=== PATIENT | female | born 1985 | race Caucasian/White ===

== ENCOUNTER → 2018-03-08 | Outpatient (CLI) | payer OTHER | LOC: FIMAGING 07:31 | PROVIDERS: ATTEND Advanced Practice Midwife | DX: O09.522 Supervision of elderly multigravida, second trimester (principal); O09.812 Supervision of pregnancy resulting from assisted reproductive technology, second trimester; Z3A.20 20 weeks gestation of pregnancy ==

== ENCOUNTER 2018-06-17 19:52 | Inpatient (IN) | payer OTHER ==
[2018-06-17] MEDS ORDERED: IBUPROFEN 600 MG TAB PO PRN (20:57)
[2018-06-17] MEDS ORDERED: OXYTOCIN/RINGERS LACTATE 1,000 ML IV PRN (20:57)
[2018-06-17] MEDS ORDERED: OLIVE OIL 118 ML BTL MISC PRN (20:57)
[2018-06-17] MEDS ORDERED: LIDOCAINE 1% 300 MG/30 ML SDV SC PRN (20:57)
[2018-06-17] MEDS ORDERED: MISOPROSTOL 200 MCG TAB PO PRN (20:57)
[2018-06-17] MEDS ORDERED: EPSOM SALT 454 GM TP PRN (20:57)
[2018-06-17] MEDS ORDERED: AMMONIA AROMATIC 1 EACH AMP IH PRN (20:57)
[2018-06-17] MEDS ORDERED: TERBUTALINE SULFATE 1 MG/ML VIAL IV PRN (20:57)
[2018-06-17] MEDS ORDERED: BETAMETHASONE IM SYRINGE IM ONE (20:59)
[2018-06-17] MEDS ORDERED: PENICILLIN G POTASSIUM 5,000,000 UNIT in D5W 150 ML IV ONE (21:30)
[2018-06-17 22:15] LABS: PLATELET COUNT 211 10^3/uL (150-400)
--- NOTE | 2018-06-17 23:25 | PDGENHP ---
History and Physical History and Physical: Care: [facility] HPI: Pt reports she had leaking fluid this afternoon when getting up from a sitting position at 1630 but assumed it was urine. She states she went home early from work as she was not feeling well. Denies contractions. After having it happen a second time with a large gush she paged the licensed vocational nurse advertising sales representative. States she had a couple of more incidence of leaking before coming in. Once on the unit , the RN visualized clear fluid at the introitus and again on a pad. Nitrazine equivocal, amnisure +. Patient is a 33 yo G 3 P 1 @ 34.5 weeks that presents to L&D with complaints of leaking fluid. EDC: 07/24/2018 which is based on LMP: 10/15/2017 which is known and consistent with Ultrasound at 6 weeks. Her is complicated by: AMA, Surrogate by IVF, mild anemia Review of Systems: Constitutional: Began feeling flush and warm after being on the unit for a couple of hours HEENT: denies any visual changes, difficulty swallowing, hearing loss Cardiovascular: Denies any chest pain, palpitations, leg swelling Respiratory: denies any cough, wheezing, or shortness of breathe GI: Denies any nausea, vomiting, diarrhea, constipation : denies any dysuria, urgency, frequency, vaginal bleeding Musculoskeletal: denies any muscle or bone pain Skin: denies any rashes Neuro: denies any headache, seizures, lightheadedness, dizziness, or loss of consciousness Psychiatric: denies any depression, anxiety, or SI/HI thoughts HISTORY: Previous OB history: in 2014 7-10 female at 41.1 weeks gestation. Had epidural and pit augmentation; 2011 TAB without complication Past medical history: ho/depression many years ago Past surgical history: wisdom teeth Social: Denies any alcohol, tobacco, or drug use. Family history: type 1 diabetes, hypothyroid, father was alcoholic, grandmother - lupus, mother- melanoma, mother and maternal grandmother hypertension Medications: PNV Allergies (list reaction): NKDA LABS: Rh: A+ ABS: Neg Rubella: Immune HbsAg: NR HIV: NR VDRL: NR 1hr: 123 GC: Neg Chlamydia: Neg Pap: Normal GBS: Pending BMI: (prepreg) 28.2 PHYSICAL EXAM: Constitutional: WN, A&Ox3 HEENT: normocephalic atraumatic, supple Skin: Warm, dry, intact Heart: RRR, no murmur Chest: CTA-B Abdomen: Soft, nontender, gravid SVE: deferred due to rupture; confirmed vertex presentation via ultrasound Extremities: no edema, negative homans sign Neuro: grossly normal Psych: normal affect Vital Signs: On admission was afebrile. Has now had temp 100.7; repeat 100.4 assessment: FHT baseline 120-130, mod viri, +accels, 1 variable decels, Contractions: irregular Assessment: 1) 33 yo G 3 P 1 with IUP@ 34.5 2) PPROM; no labor 3) Febrile; Probable Chorioamnionitis 3) GBS unknown 4) Cat 1 FHR tracing 5) Surrogate Plan: 1) Admit to L&D 2) Consulted with Dr Freeman and Dr Bowens, [facility] Fellow to review plan of care including betamethazone, initiating GBS protocol and discussed timing of induction of labor. Per Dr Bowens ok to wait up to 12 hours after rupture and may start cytotec or pitocin. 3) Betamethazone 12.5 mg x 1; repeat in 12 hours 4) Initiated GBS protocol, received initial dose 5 million units PCN IV. 5) Since developing fever, antibiotics changed to ampicillin 2 grams q 6 hours and gentamicin 5 mg/kg q 24 hours to be dosed by the pharmacy 6) Tylenol 650 mg q 4 hours for fever. 7) Continuous monitoring 8) Pt would like to wait to start induction of labor until parents of the baby arrive. They live approx 4 hours away. Given frequency of contractions will start pitocin induction once she consents. 9) NICU advised and has been in to visit with the patient.
[2018-06-17] MEDS ORDERED: D5W IV SCH (23:30)
[2018-06-17] MEDS ORDERED: GENTAMICIN SULFATE IV SCH (23:30)
[2018-06-17] MEDS ORDERED: ACETAMINOPHEN 325 MG TAB PO PRN (23:31)
[2018-06-17] MEDS: LR 1,000 ML IV PRN (23:36)
[2018-06-17] MEDS ORDERED: OLIVE OIL 118 ML BTL ONE (23:45)
[2018-06-17] MEDS ORDERED: LIDOCAINE 1% 300 MG/30 ML SDV ONE (23:45)
[2018-06-17] MEDS ORDERED: OXYTOCIN 10 UNIT/ML VIAL ONE (23:45)
[2018-06-17] MEDS ORDERED: TERBUTALINE SULFATE 1 MG/ML VIAL ONE (23:45)
[2018-06-17] MEDS ORDERED: AMMONIA AROMATIC 1 EACH AMP IH ONE (23:45)
[2018-06-17] MEDS ORDERED: MISOPROSTOL 200 MCG TAB ONE (23:46)
[2018-06-18] MEDS: AMPICILLIN SODIUM 2 GM in NS 100 ML IV SCH ×4 (00:04→18:43)
[2018-06-18] MEDS ORDERED: PENICILLIN G POTASSIUM 2,500,000 UNIT in D5W 150 ML IV SCH (01:30)
[2018-06-18] MEDS: GENTAMICIN PHARMACY TO DOSE MISC SCH (01:42)
[2018-06-18] MEDS ORDERED: LR 500 ML IV PRN (02:59)
[2018-06-18] MEDS ORDERED: OXYTOCIN/RINGERS LACTATE 500 ML IV SCH (03:00)
[2018-06-18] MEDS: LR 1,000 ML IV PRN (03:44)
--- NOTE | 2018-06-18 04:02 | OBPROG ---
Labor Progress Note Assessment/Plan: Assessment: Category 1 strip Plan: 06/18/18 04:06 Reviewed with pt and intended parents plan for induction and anticipated . The intended mother will be handed the baby at delivery with intent to wait for delayed cord clamping prior to handing off to the NICU. Questions answered. Orders for low dose pitocin entered. Subjective/Intrapartum Course: 06/18/18 03:58 Pt states she is feeling better, no longer flushed and hot. Feeling some uc's. The intended parents have arrived and will be present for the as well as assuming care for the baby once born. NICU has met with the pt and will be meeting with the parents prior to the . Objective: 06/17/18 21:50 Patient ABO/Rh A POSITIVE 06/17/18 21:50 Afebrile. VSS. FHT baseline 120; mod viri; + accels; no decels. UC's q 4 to 5 when toco picking them up. Having difficulty monitoring contractions when in different positions. - SVE Membranes: SROM Amniotic Fluid Color: Clear Oxytocin Orders Assessment - Pre-Induction/Augmentation Assessment Gestational Age: 34 week(s) and 5 day(s) ICD10 Worksheet Patient Problems: Problems Problem Status Onset Chorioamnionitis Acute premature rupture of membranes (PPROM) with unknown onset of labor Acute (spontaneous vaginal delivery) Acute - ICD10 Problem Qualifiers (1) premature rupture of membranes (PPROM) with unknown onset of labor (2) Chorioamnionitis
[2018-06-18] MEDS ORDERED: BETAMETHASONE IM SYRINGE IM ONE ×3 (09:00→21:30)
--- NOTE | 2018-06-18 11:38 | OBPROG ---
Labor Progress Note Assessment/Plan: Assessment: 33 y/o @ 34.6 wks ega PPROM 34.5 wks ega Chorioamnionitis - receiving amp/gent IV VSS - last fever 2300 IOL - pitocin at 20 mu - has been infusing for 7 hours with little response Category 1 EFM Cntx mild q 3-4 min SVE 1-2/60/-2 soft Plan: Will d/c pit for now and give oral cytotec in 2 hours - reevaluate 4 hours after first dose and repeat if needed Restart pitocin when appropriate Continue IV amp/gent No further vaginal exams until in active labor - then limited. Reviewed POC with patient Anticipate 06/18/18 11:22 Subjective/Intrapartum Course: 06/18/18 03:58 Pt states she is feeling better, no longer flushed and hot. Feeling some uc's. The intended parents have arrived and will be present for the as well as assuming care for the baby once born. NICU has met with the pt and will be meeting with the parents prior to the . 06/18/18 11:38 Comfortable, has been resting - reports contractions very mild and have not increased in intensity. Objective: 06/17/18 21:50 Patient ABO/Rh A POSITIVE 06/17/18 21:50 - SVE Dilation (cm): 1 Effacement (%): 50 Station: -2 Membranes: SROM Amniotic Fluid Color: Clear - Contraction Pattern Assessment Current Contraction Pattern: Irregular - Physical Exam General Appearance: WD/WN Neck: normal inspection Respiratory: normal breath sounds Cardiac/Chest: regular rate, rhythm Skin: normal color Neuro/Psych: alert, normal mood/affect, oriented x 3 Oxytocin Orders Assessment - Pre-Induction/Augmentation Assessment Gestational Age: 34 week(s) and 5 day(s) ICD10 Worksheet Patient Problems: Problems Problem Status Onset Chorioamnionitis Acute premature rupture of membranes (PPROM) with unknown onset of labor Acute (spontaneous vaginal delivery) Acute
[2018-06-18] MEDS: MISOPROSTOL 50 MCG CAP PO PRN ×2 (13:30→19:42)
--- NOTE | 2018-06-18 20:14 | OBPROG ---
Labor Progress Note Assessment/Plan: Assessment: 33 y/o @ 34.6 wks ega PPROM 34.5 wks ega Chorioamnionitis - receiving amp/gent IV VSS - last fever 2300 s/p 2 doses of cytotec Category 1 EFM Cntx mild q 3-4 min Plan: Will continue to give cytotec q 4 hours throughout night unless norman too frequently Restart pitocin in AM if not laboring Continue IV amp/gent No further vaginal exams until in active labor - then limited. Reviewed POC with patient Anticipate 06/18/18 11:22 06/18/18 20:12 Subjective/Intrapartum Course: 06/18/18 03:58 Pt states she is feeling better, no longer flushed and hot. Feeling some uc's. The intended parents have arrived and will be present for the as well as assuming care for the baby once born. NICU has met with the pt and will be meeting with the parents prior to the . 06/18/18 11:38 Comfortable, has been resting - reports contractions very mild and have not increased in intensity. 06/18/18 20:14 Still fairly comfortable with some "menstrual crampy" feeling. Is going to try to rest. Objective: 06/17/18 21:50 Patient ABO/Rh A POSITIVE 06/17/18 21:50 Group B Strep DNA NEGATIVE (NEGATIVE) 06/17/18 22:13 - SVE Membranes: SROM Amniotic Fluid Color: Clear - Contraction Pattern Assessment Current Contraction Pattern: Irregular Oxytocin Orders Assessment - Pre-Induction/Augmentation Assessment Gestational Age: 34 week(s) and 5 day(s) ICD10 Worksheet Patient Problems: Problems Problem Status Onset Chorioamnionitis Acute premature rupture of membranes (PPROM) with unknown onset of labor Acute (spontaneous vaginal delivery) Acute
[2018-06-18] MEDS ORDERED: hydrOXYzine HCL 50 MG TAB PO PRN (20:22)
[2018-06-18] MEDS ORDERED: GENTAMICIN SULFATE IV SCH (23:30)
[2018-06-18] MEDS ORDERED: D5W IV SCH (23:30)
[2018-06-19] MEDS: AMPICILLIN SODIUM 2 GM in NS 100 ML IV SCH (00:30)
[2018-06-19] MEDS: GENTAMICIN PHARMACY TO DOSE MISC SCH (00:59)
--- NOTE | 2018-06-19 01:57 | OBPROG ---
Labor Progress Note Assessment/Plan: Assessment: 33 y/o @ 34.6 wks ega PPROM 34.5 wks ega Chorioamnionitis - receiving amp/gent IV VSS - last fever 2300 s/p 2 doses of cytotec Category 1 EFM Cntx mild q 3-4 min Plan: Will continue to give cytotec q 4 hours throughout night unless norman too frequently Restart pitocin in AM if not laboring Continue IV amp/gent No further vaginal exams until in active labor - then limited. Reviewed POC with patient Anticipate 06/18/18 11:22 06/18/18 20:12 06/19/18 01:51 Unable to citrus picker contractions adequately with external toco - RN concerned about possible late vs variable decels intermittently with contractions. Starting to feel more uncomfortable and using nitrous as needed. IUPC placed - category 1 EFM noted with no further decelerations. SVE /-2 - latent phase labor. Contractions q 5 - MVUs 108-245 at this time. Will continue to monitor and start pitocin in 30 minutes if continued category 1 EFM. Epidural PRN if patient desires. Subjective/Intrapartum Course: 06/18/18 03:58 Pt states she is feeling better, no longer flushed and hot. Feeling some uc's. The intended parents have arrived and will be present for the as well as assuming care for the baby once born. NICU has met with the pt and will be meeting with the parents prior to the . 06/18/18 11:38 Comfortable, has been resting - reports contractions very mild and have not increased in intensity. 06/18/18 20:14 Still fairly comfortable with some "menstrual crampy" feeling. Is going to try to rest. 06/19/18 01:58 More uncomfortable with contractions. Using nitrous as needed. Objective: 06/17/18 21:50 Patient ABO/Rh A POSITIVE 06/17/18 21:50 Group B Strep DNA NEGATIVE (NEGATIVE) 06/17/18 22:13 - SVE Dilation (cm): 3 Effacement (%): 90 Station: -2 Membranes: SROM Amniotic Fluid Color: Clear - Contraction Pattern Assessment Current Contraction Pattern: Regular - Procedures Non-surgical Procedures: IUPC Oxytocin Orders Assessment - Pre-Induction/Augmentation Assessment Gestational Age: 34 week(s) and 5 day(s) ICD10 Worksheet Patient Problems: Problems Problem Status Onset Chorioamnionitis Acute premature rupture of membranes (PPROM) with unknown onset of labor Acute (spontaneous vaginal delivery) Acute
[2018-06-19] MEDS ORDERED: SIMETHICONE 80 MG TAB CHEW PO PRN (06:01)
[2018-06-19] MEDS ORDERED: DOCUSATE SODIUM 100 MG CAP PO PRN (06:01)
[2018-06-19] MEDS ORDERED: HYDROCORTISONE 0.5% CREAM TP PRN (06:01)
[2018-06-19] MEDS ORDERED: fentaNYL 100 MCG/2 ML INJ IVP ONE (06:01)
--- NOTE | 2018-06-19 06:15 | OBDEL ---
Info Type: Vaginal Presentation at Delivery: Vertex L&D Analgesia/Anesthesia Type: Nitrous GBS+: No Intrapartum Medications: Generic Name Dose Route Start Last Admin Trade Name Aris PRN Reason Stop Dose Admin Acetaminophen 650 mg 06/17/18 23:31 06/17/18 23:48 Tylenol PO 12/14/18 23:30 650 mg Q4HRS PRN Administration Pain, Mild/Fever, Can Take PO Hydroxyzine HCl 50 mg 06/18/18 20:22 06/18/18 21:22 Hydroxyzine Hcl PO 12/15/18 20:21 50 mg Q6HRS PRN Administration sleep Oxytocin/Lactated Ringer's 500 mls @ 0 mls/hr 06/18/18 03:00 06/18/18 03:42 Pitocin 30 Units/Lr (Premix) IV 12/15/18 02:59 500 mls CONT ANDREA Administration Protocol Per Protocol Discontinued Medications Generic Name Dose Route Start Last Admin Trade Name Aris PRN Reason Stop Dose Admin Betamethasone Acet/Betameth SodPhos 12 mg 06/17/18 20:59 06/17/18 21:24 Celestone Im Syringe IM 06/17/18 21:00 12 mg ONCE ONE Administration Betamethasone Acet/Betameth SodPhos 12 mg 06/18/18 09:00 06/18/18 15:10 Celestone Im Syringe IM 06/18/18 09:01 Not Given ONCE ONE Betamethasone Acet/Betameth SodPhos 12 mg 06/18/18 21:30 06/18/18 21:15 Celestone Im Syringe IM 06/18/18 21:31 12 mg ONCE ONE Administration Gentamicin Sulfate 1 each 06/17/18 23:15 06/19/18 00:[address] [facility] 12/14/18 23:14 Not Given Q24H [facility] Protocol Lactated Ringer's 1,000 mls @ 0 mls/hr 06/17/18 20:57 06/18/18 03:44 Lr IV 06/18/18 20:56 1,000 mls PRN PRN Administration SEE PROTOCOL CONDITIONS Protocol Per Protocol Penicillin G Potassium 5,000, 160 mls @ 160 mls/hr 06/17/18 21:30 06/17/18 21 :38 000 unit/ Dextrose IV 06/17/18 22:29 160 mls ONCE ONE Administration Protocol Ampicillin Sodium 2 gm/ Sodium 110 mls @ 220 mls/hr 06/18/18 00:00 06/19/18 00:30 Chloride IV 07/18/18 00:00 110 mls Q6HRS ANDREA Administration Protocol Gentamicin Sulfate 430 mg/ 110.75 mls @ 110.75 mls/hr 06/17/18 23:30 23:35 Dextrose IV 07/17/18 23:29 110.75 mls Q24H ANDREA Administration Gentamicin Sulfate 285 mg/ 107.125 mls @ 107.125 mls/hr 06/18/18 23:30 23:26 Dextrose IV 07/17/18 23:29 107.125 mls Q24H ANDREA Administration Misoprostol 50 mcg 06/18/18 13:30 06/18/18 19:42 Cytotec PO 12/15/18 13:29 50 mcg Q4 PRN Administration cervical ripening - Infant Care Provider Digital Coordinator/FORENSIC PSYCHIATRIST: Laura Lazo - Hospital Course Intrapartum: 06/18/18 03:58 Pt states she is feeling better, no longer flushed and hot. Feeling some uc's. The intended parents have arrived and will be present for the as well as assuming care for the baby once born. NICU has met with the pt and will be meeting with the parents prior to the . 06/18/18 11:38 Comfortable, has been resting - reports contractions very mild and have not increased in intensity. 06/18/18 20:14 Still fairly comfortable with some "menstrual crampy" feeling. Is going to try to rest. 06/19/18 01:58 More uncomfortable with contractions. Using nitrous as needed. Indications for Delivery: PPROM Vaginal Delivery - Delivery Provider Delivery Physician/CNM: Christina Horn - Labor and Delivery Onset of Contractions Date: 06/18/18 Onset of Contractions Time: 22:00 Onset of Contractions Type: Induced Rupture of Membranes Date: 06/17/18 Rupture of Membranes Time: 16:30 Rupture of Membranes Type: Premature Amniotic Fluid Color: Clear Dilation Complete Date: 06/19/18 Dilation Complete Time: 05:21 Placenta Delivery Date: 06/19/18 Placenta Delivery Time: 05:40 Total Hours of Labor: 7 Non-surgical Procedures: IUPC Laceration: 1st Degree Vaginal Sponge Count Correct: Yes Vaginal Needle Count Correct: Yes Vaginal Sweep Performed: No EBL: 300 Delivery Events: None Delivery Comment: Chorioamnionitis - treated with ampicillin/gentamycin - Medications Labor Augmentation/Induction Methods Used: Pitocin, Misoprostol [place] Data NENITA: 07/24/18 Gestational Age: 35 week(s) and 0 day(s) [place] Delivery Date: 06/19/18 Delivery Time: 05:34 Sex of : Female Score (1 Min): 8 Score (5 Min): 9 ICD10 Worksheet Patient Problems: Problems Problem Status Onset Chorioamnionitis Acute premature rupture of membranes (PPROM) with unknown onset of labor Acute (spontaneous vaginal delivery) Acute
[2018-06-19] MEDS: IBUPROFEN 600 MG TAB PO SCH ×2 (06:31→13:12)
--- NOTE | 2018-06-19 10:00 | OBGCSDC ---
General Delivery Information - General Info : 3 Para: 2 Abortions: 1 Type: Vaginal L&D Analgesia/Anesthesia Type: Nitrous Admission Date: 06/17/18 Labs: Patient ABO/Rh A POSITIVE 06/17/18 21:50 Hct 34.5 % (38.0-47.0) L 06/17/18 21:50 Group B Strep DNA NEGATIVE (NEGATIVE) 06/17/18 22:13 - Hospital Course Intrapartum: 06/18/18 03:58 Pt states she is feeling better, no longer flushed and hot. Feeling some uc's. The intended parents have arrived and will be present for the as well as assuming care for the baby once born. NICU has met with the pt and will be meeting with the parents prior to the . 06/18/18 11:38 Comfortable, has been resting - reports contractions very mild and have not increased in intensity. 06/18/18 20:14 Still fairly comfortable with some "menstrual crampy" feeling. Is going to try to rest. 06/19/18 01:58 More uncomfortable with contractions. Using nitrous as needed. : 06/19/18 2000 S) Pt doing well, reports min pain and bleeding. she is ambulating and voiding without difficulty. She is . She desires discharge home today. O) VSS, afebrile constitutional: WNWF, A&Ox3 HEENT: normocephalic, atraumatic, supple Heart: RRR, No murmur Chest: CTA-B Abdomen: Soft, nontender Uterus: Firm at U-2 Lochia: Minimal rubra Perineum: Intact, healing well Extremities: Trace edema, and negative Juliette's sign Neuro: Grossly normal A) 33 year-old S/P PPD#0 anemia P) Discharge home today Continue Pelvic rest x6wks Continue daily iron Discussed danger signs (infection, preeclampsia, depression, heavy bleeding, etc) RTO in 2/4/6 weeks - call if concerns prior to 2 week appt. 06/19/18 10:19 06/21/18 10:10 Vaginal - Delivery Provider Delivery Physician/CNM: Christina Horn - Diagnosis Labor: Induced Rupture of Membranes Type: Premature Amniotic Fluid Color: Clear Laceration: 1st Degree Delivery Events: None - Procedures Non-surgical Procedures: IUPC - Delivery Non-surgical Procedures: IUPC EBL: 300 Moon Data NENITA: 07/24/18 Gestational Age: 35 week(s) and 2 day(s) [place] Delivery Date: 06/19/18 Delivery Time: 05:34 Sex of Infant: Female Weight (gm): 2267.962 g Score (1 Min): 8 Score (5 Min): 9 Discharge Information - Discharge Information Prescriptions: Docusate Sodium [Colace 100 MG (*)] 100 mg PO BID PRN #30 cap PRN Reason: Constipation Ibuprofen [Motrin (*)] 600 mg PO Q6H #30 tab Condition: Good Instruction/Follow Up: Two Weeks, Four Weeks, Six Weeks
[2018-06-19] MEDS: ACETAMINOPHEN 325 MG TAB PO SCH (16:56)
== END 2018-06-19 20:15 | disposition home or self-care (01) | DRG 775 ==
LOC: FLD 19:52 → OBSVTOIN 23:00
PROVIDERS: ADMIT Advanced Practice Midwife; ATTEND Advanced Practice Midwife
PROC: 4A1J7BZ Monitoring of Products of Conception, Nervous Pressure, Via Natural or Artificial Opening (ICD-10-PCS; 2018-06-18)
PROC: 3E033VJ Introduction of Other Hormone into Peripheral Vein, Percutaneous Approach (ICD-10-PCS; principal; 2018-06-19)
PROC: 10E0XZZ Delivery of Products of Conception, External Approach (ICD-10-PCS; principal; 2018-06-19)
DX: O42.113 Preterm premature rupture of membranes, onset of labor more than 24 hours following rupture, third trimester (principal); O41.1230 Chorioamnionitis, third trimester, not applicable or unspecified; O70.0 First degree perineal laceration during delivery; Z3A.34 34 weeks gestation of pregnancy; Z37.0 Single live birth
CPT/HCPCS: J0290; J0702; J1580; J2540; J2590; J3010; J3105